=== PATIENT | male | born 1990 | race Caucasian/White ===

== ENCOUNTER 2017-04-26 14:49 | Emergency (ER) | payer OTHER ==
[~2017-04-26] VITALS: Ht 185.4 cm; Wt 95.3 kg
[2017-04-26] MEDS ORDERED: FUL-GLO OP ONE ×2 (15:13)
--- NOTE | 2017-04-26 15:29 | ER.PDOC ---
General Chief Complaint: Eye Problems Stated Complaint: RIGHT EYE PROBLEM Time seen by MD: 15:25 Source: patient Exam Limitations: no limitations History of Present Illness Initial Comments Right eye pain. Child scratched right eye while Timing/Duration: abrupt Associated Symptoms: pian Location: right eye Severity: moderate Where: home Allergies: Coded Allergies: No Known Allergies (Unverified , 04/26/17) Past Medical History Medical History: no pertinent history Surgical History: no surgical history Social History Smoking: non-smoker Alcohol Use: none Drug Use: none Constitutional: no symptoms reported Eyes: see HPI Throat: no symptoms reported Respiratory: no symptoms reported Cardiovascular: no symptoms reported Gastrointestinal: no symptoms reported Musculoskeletal: no symptoms reported All Other Systems: Reviewed and Negative Physical Exam General Appearance: alert, no distress Visual Acuity: no globe trauma Eyelid: nml inspection Conjunctiva/Sclera: (R) injected Corneas: abrasion (R), exam w/flurescein (R) EOM's: intact, no nystagmus Pupils: PERRL, nml accommodation Head/ENT: nml inspection, pharynx nml Neck/Back: nml inspection, painless ROM Resp/CVS: no resp distress, lungs clear, heart sounds nml, reg. rate & rhythm Abdomen: non-tender, no organomegaly NEURO/PSYCH: oriented X3, mood/effect nml Departure Time of Disposition: 15:27 Disposition: 01 HOME, SELF-CARE Impression: Primary Impression: Corneal abrasion, right Qualified Codes: S05.01XA - Injury of conjunctiva and corneal abrasion without foreign body, right eye, initial encounter Condition: Stable Referrals: PCP,UNKNOWN (PCP) PRIMARY CARE PROVIDER Additional Instructions: Polytrim gtt Tylenol F/U with [employer] in 2-3 days ZAIDA RAMOS MD Apr 26, 2017 15:29
[2017-04-26 15:47] VITALS: BP 140/69
== END 2017-04-26 15:38 | disposition home or self-care (01) ==
LOC: ER 14:49
DX: S05.01XA Injury of conjunctiva and corneal abrasion without foreign body, right eye, initial encounter (principal); X58.XXXA Exposure to other specified factors, initial encounter; Y93.89 Activity, other specified; Y92.89 Other specified places as the place of occurrence of the external cause; Y99.2 Volunteer activity
CPT/HCPCS: 99283